=== PATIENT | female | born 1990 | race Caucasian/White ===

== ENCOUNTER 2016-12-28 00:21 | Observation (INO) | payer MEDICAID ==
[~2016-12-28] VITALS: Ht 160 cm; Wt 64.0 kg
[2016-12-28] MEDS ORDERED: ONDANSETRON 2MG/ML, 2ML ONE (00:57)
[2016-12-28 00:58] LABS: DAU SCREEN DISCLAIMER
[2016-12-28] MEDS ORDERED: ONDANSETRON 2MG/ML, 2ML IVPush ONE (01:00)
[2016-12-28 01:18] LABS: ASPARTATE AMINO TRANSFERASE 12 U/L (15-37); BLOOD UREA NITROGEN 19 mg/dL (7-18)
[2016-12-28 01:28] LABS: ACETAMINOPHEN < 2 mcg/mL (10-30)
[2016-12-28] MEDS ORDERED: NITROFURANTOIN (MACROBID) 100 MG CAPSULE PO ONE (01:30)
[2016-12-28] MEDS ORDERED: ACETAMINOPHEN 325 MG TABLET PO PRN (02:30)
[2016-12-28 07:58] VITALS: BP 104/62
[2016-12-28] MEDS: NITROFURANTOIN (MACROBID) 100 MG CAPSULE PO SCH ×2 (08:57→20:49)
[2016-12-28 19:58] VITALS: BP 109/62
[2016-12-28] MEDS: TEMAZEPAM 15 MG CAPSULE PO PRN (22:26)
[2016-12-29 08:57] VITALS: BP 116/78
[2016-12-29] MEDS: NITROFURANTOIN (MACROBID) 100 MG CAPSULE PO SCH (09:00)
[2016-12-29] MEDS: NICOTINE 14MG/24 HR PATCH.TD24 TD SCH (16:27)
[2016-12-29 19:45] VITALS: BP 130/87
[2016-12-29] MEDS: TEMAZEPAM 15 MG CAPSULE PO PRN (21:05)
[2016-12-29] MEDS: CEPHALEXIN 250 MG CAPSULE PO SCH (21:05)
[2016-12-30] MEDS: CEPHALEXIN 250 MG CAPSULE PO SCH ×4 (03:21→20:47)
[2016-12-30 07:50] VITALS: BP 113/73
[2016-12-30] MEDS: NICOTINE 14MG/24 HR PATCH.TD24 TD SCH (17:27)
[2016-12-30 19:50] VITALS: BP 121/76
[2016-12-30] MEDS: TEMAZEPAM 15 MG CAPSULE PO PRN (20:47)
[2016-12-31] MEDS: CEPHALEXIN 250 MG CAPSULE PO SCH ×4 (02:56→20:09)
[2016-12-31 08:10] VITALS: BP 105/67
[2016-12-31] MEDS: NICOTINE 14MG/24 HR PATCH.TD24 TD SCH (16:00)
[2016-12-31 19:12] VITALS: BP 131/81
[2016-12-31] MEDS: TEMAZEPAM 15 MG CAPSULE PO PRN (22:15)
[2017-01-01] MEDS: CEPHALEXIN 250 MG CAPSULE PO SCH ×4 (04:24→21:26)
[2017-01-01 08:06] VITALS: BP 122/64
[2017-01-01] MEDS: NICOTINE 14MG/24 HR PATCH.TD24 TD SCH (15:18)
[2017-01-01 20:08] VITALS: BP 111/66
[2017-01-01] MEDS: TEMAZEPAM 15 MG CAPSULE PO PRN (21:26)
[2017-01-02] MEDS: CEPHALEXIN 250 MG CAPSULE PO SCH ×4 (03:50→20:04)
[2017-01-02 08:23] VITALS: BP 123/72
[2017-01-02] MEDS: NICOTINE 14MG/24 HR PATCH.TD24 TD SCH (16:10)
[2017-01-02 19:37] VITALS: BP_SYST 119; BP_SYST 158; BP_DIAS 104; BP_DIAS 79
[2017-01-02] MEDS: TEMAZEPAM 15 MG CAPSULE PO PRN (20:07)
[2017-01-03] MEDS: CEPHALEXIN 250 MG CAPSULE PO SCH ×2 (03:10→08:30)
[2017-01-03 08:50] VITALS: BP 113/71
[2017-01-03] MEDS: NICOTINE 14MG/24 HR PATCH.TD24 TD SCH (16:00)
[2017-01-03 19:37] VITALS: BP 123/81
[2017-01-03] MEDS: TEMAZEPAM 15 MG CAPSULE PO PRN (20:21)
[2017-01-04 08:41] VITALS: BP 120/93
[2017-01-04] MEDS: NICOTINE 14MG/24 HR PATCH.TD24 TD SCH (16:36)
== END 2017-01-04 18:15 | disposition home or self-care (01) ==
LOC: ED 01:02 → EDIP 02:03 → 3E 03:08 → 3NE 12-30 07:00
DX: T39.312A Poisoning by propionic acid derivatives, intentional self-harm, initial encounter (principal); T45.0X2A Poisoning by antiallergic and antiemetic drugs, intentional self-harm, initial encounter; G92 Toxic encephalopathy; N39.0 Urinary tract infection, site not specified; F32.9 Major depressive disorder, single episode, unspecified; F41.9 Anxiety disorder, unspecified; B96.1 Klebsiella pneumoniae [K. pneumoniae] as the cause of diseases classified elsewhere; R94.6 Abnormal results of thyroid function studies; X58.XXXA Exposure to other specified factors, initial encounter; Y92.89 Other specified places as the place of occurrence of the external cause; Y93.89 Activity, other specified; Y99.8 Other external cause status
CPT/HCPCS: 36415; 80053; 80307; 80329; 81001; 84439; 84443; 84703; 85025; 87077; 87086; 87186; 93005; 96374; 99285; G0378; J2405; Q0177; G0480

== ENCOUNTER 2017-01-09 06:57 | Emergency (ER) | payer MEDICAID ==
[~2017-01-09] VITALS: Ht 160 cm; Wt 67.4 kg
[2017-01-09 07:04] VITALS: BP 114/74
[2017-01-09 08:15] LABS: PATH.CAST-FLAG NOT PRESENT; SPERM-FLAG NOT PRESENT; SRC-FLAG NOT PRESENT; XTAL-FLAG NOT PRESENT; YLC-FLAG NOT PRESENT
== END 2017-01-09 09:14 | disposition home or self-care (01) ==
LOC: ED 07:31
DX: N30.90 Cystitis, unspecified without hematuria (principal); B00.1 Herpesviral vesicular dermatitis
CPT/HCPCS: 81001; 87086; 99284